=== PATIENT | female | born 1965 | race Caucasian/White ===

== ENCOUNTER 2020-03-28 02:08 | Emergency (ER) | payer SELFPAY ==
[~2020-03-28] VITALS: Ht 170.2 cm; Wt 62.3 kg
[2020-03-28 02:26] VITALS: Ht 170.2 cm; Wt 62.3 kg
[2020-03-28 02:40] LABS: BASOPHILS 0.5 % (0-2); HEMATOCRIT 37.8 % (36.0-48.0); LYMPHOCYTES 45.3 % (15-50); MCH 29.6 pg (26.0-34.0); MCHC 31.7 g/dL (31.0-37.0); MCV 93.3 fL (80.0-100.0); MEAN PLATELET VOLUME 10.4 fL (7.4-10.4); MONOCYTES 9.2 % (2-11); PLATELET COUNT 192 10x3/uL (130-400); RBC 4.05 10x6/uL (4.00-5.40); RDW 12.7 % (11.5-14.5); WBC 5.6 10x3/uL (4.8-10.8)
[2020-03-28 02:43] LABS: APTT 28.6 SECONDS (22.8-39.4); INR 0.96 (0.85-1.17); PROTIME 12.8 SECONDS (11.6-15.0)
[2020-03-28 02:45] LABS: CALC OSMOLALITY 276 mosm/kg (275-300); CALCIUM 8.4 mg/dL (8.5-10.1); CHLORIDE - SERUM 105 mmol/L (98-107); GLUCOSE 84 mg/dL (74-106); POTASSIUM - SERUM 3.4 mmol/L (3.5-5.1); SODIUM 140 mmol/L (136-145); UREA NITROGEN 11 mg/dL (7-18); eGFR NON AFRICAN AMERICAN 62 mL/min (90-120)
[2020-03-28 02:57] LABS: ALBUMIN 3.7 g/dL (3.4-5.0); ALKALINE PHOSPHATASE 40 U/L (30-120); ALT (SGPT) 29 U/L (10-68); BILIRUBIN - TOTAL 0.21 mg/dL (0.2-1.3); CKMB 1.2 U/L (0.0-3.6); CREATINE KINASE 88 UL (21-215); LIPASE 229 U/L (73-393); MAGNESIUM - SERUM 1.9 mg/dL (1.8-2.4); PROTEIN - SERUM 6.5 g/dL (6.4-8.2)
[2020-03-28 02:58] LABS: TROPONIN-I < 0.017 ng/mL (0.000-0.060)
[2020-03-28 03:03] LABS: BILIRUBIN NEGATIVE (NEGATIVE); GLUCOSE NEGATIVE (NEGATIVE); KETONE NEGATIVE (NEGATIVE); NITRITE NEGATIVE (NEGATIVE); UROBILINOGEN NORMAL (NORMAL)
[2020-03-28 03:13] LABS: UDS - AMPHET NEGATIVE QUAL (NEGATIVE); UDS - BARB NEGATIVE QUAL (NEGATIVE); UDS - BENZO NEGATIVE QUAL (NEGATIVE); UDS - COCAINE NEGATIVE QUAL (NEGATIVE); UDS - OPIATE NEGATIVE QUAL (NEGATIVE); UDS - PCP NEGATIVE QUAL (NEGATIVE); UDS - THC NEGATIVE QUAL (NEGATIVE)
[2020-03-28 05:25] LABS: CKMB 1.1 U/L (0.0-3.6)
[2020-03-28 05:28] LABS: TROPONIN-I < 0.017 ng/mL (0.000-0.060)
[2020-03-28 06:29] VITALS: BP 109/70
== END 2020-03-28 06:29 | disposition home or self-care (01) ==
LOC: D.ER 02:08
PROVIDERS: Emergency Medicine
DX: R00.1 Bradycardia, unspecified (principal); R07.9 Chest pain, unspecified

== ENCOUNTER → 2020-04-20 12:22 | Outpatient (CLI) | payer MEDICAID ==
[2020-03-28 02:26] VITALS: BMI 21.5
== END | disposition home or self-care (01) ==
LOC: D.HCCARDIO 12:22
PROVIDERS: ATTEND Internal Medicine Cardiovascular Disease
DX: R07.9 Chest pain, unspecified (principal)

== ENCOUNTER 2020-05-12 06:20 | Outpatient (CLI) | payer MEDICAID ==
[~2020-05-12] VITALS: Ht 165.1 cm; Wt 61.6 kg
--- NOTE | ~2020-05-12 | HEMODYNAMI ---
PATIENT:SUSANNAH HAGAN MEDICAL RECORD: [id number] : 69 LOCATION:[facility] ADMISSION DATE: 05/12/20 Generatedon:05/12/20209:00 Patient name: SUSANNAH HAGAN Patient #: [id number] SSN: : 1965 Date of study: 05/12/2020 Page: Of Hemodynamic Procedure Report Patient Data Patient Demographics Procedure consent was obtained First Name: SUSANNAH Gender: Female Last Name: DANYA : 1965 Patient #: [id number] Age: 55 year(s) Race: Accession #: Ethnicity: or [id number] Additional ID: [id number] Contact details Address: [place] [address] State: [place] City: [place] Zip code: [address] Past Medical History Allergies Allergen Reaction Date Comments Reported Other allergy 05/12/2020 NKDA Admission Admission Data Admission Date: 05/12/2020 Admission Time: 6:20 Arrival Date: 05/12/2020 Arrival Time: 0:00 Height (in.): 65 BSA: 1.68 (m2) Height (cm.): 165.1 BMI: 22.63 (kg/m2) Weight (lbs.): 136 Weight (kg.): 61.69 Lab Results Lab Result Date: 05/12/2020 Lab Result Time: 0:00 Biochemistry Name Units Result Min Max BUN mg/dl 14 --(--*-)-- 7 18 Creatinine mg/dl 1 --(--*-)-- 0.6 1.3 eGFR ml/min 61.95393 *-(----)-- 90 120 NONAFRICAN CBC Name Units Result Min Max Hematocrit % 40.3 -*(----)-- 42 54 Hemoglobin g/dl 13 -*(----)-- 13.5 17.5 Procedure Procedure Types Cath Procedure Diagnostic Procedure LHC LHC w/Coronaries Sedation Charges Moderate Sedation up to 15 minutes Procedure Description Procedure Date Procedure Date: 05/12/2020 Procedure Start Time: 8:44 Procedure End Time: 8:59 Procedure Staff Name Function Jay Jay Perez MD Performing Physician Monica Lovett RT Monitor Penelope Evans RN Nurse Camille Freed RT Scrub Indication Chest pain Procedure Data Cath Procedure Fluoroscopy Diagnostic fluoroscopy Total fluoroscopy Time: 0 time: 0 min min Diagnostic fluoroscopy Total fluoroscopy dose: 329 dose: 329 mGy mGy Contrast Material Contrast Material Type Amount (ml) Isovue 300 51 Entry Location Entry Primary Successful Side Size Upsize Upsize Entry Closure Anne ccessful Closure Location (Fr) 1 (Fr) 2 (Fr) Remarks Device Remarks Radial Right 6 Fr Mechanical artery Short Compression Estimated blood loss: 5 ml Diagnostic catheters Device Type Used For End Catheter Placement DIAGNOSTIC Wirt 110cm 5 Procedure Fr catheter ([id number]) DIAGNOSTIC AR MOD 5Fr Right Coronary Catheter ([id number]) Angiography Procedure Complications No complications Procedure Medications Medication Administration Route Dosage 0.9% NaCl I.V. 100 ml/hr Oxygen etCO2 Nasal cannula 2 l/min Lidocaine 2% added to field 20 Heparin Flush Bag added to field 2 bags (1000units/500ml NS) Radial Cocktail added to field 1 syringe (Verapamil 2mg/Nitro 400mcg/Heparin 1500units) Versed I.V. 2 mg Fentanyl I.V. 50 mcg Fentanyl I.V. 50 mcg Hemodynamics Rest BSA: 1.68 (m2) HGB: 13 (g/dl) O2 Consumption: Estimated: 149.45 (ml/min) O2 Cons umption indexed: Estimated:88.96 (ml/min/m) Heart Rate: 49 (bpm) Pressure Samples Time Site Value (mmHg) Purpose Heart Use Rate(bpm) 8:48 LV 97/-7,15 Snapshot 62 Gradients Valve Time Site Site Mean SEP/DFP Peak To Heart Use 1 2 (mmHg) (sec/min) Peak Rate (mmHg) (bpm) Aortic 8:48 LV AO 83 Snapshots Pre Cath Intra NCS Post Cath Vital Signs Time Heart Resp SPO2 etCO2 NIBP Rhythm Pain Sedation Rate (ipm) (%) (mmHg) (mmHg) Status Level (bpm) 8:28:27 55 16 100 40.3 110/69(84) SB 0 (11) 10(A) , No pain 8:32:39 51 23 100 41.1 99/58(82) SB 0 (11) 10(A) , No pain 8:36:46 49 14 100 41.9 97/57(81) SB 0 (11) 10(A) , No pain 8:41:45 49 17 100 43.3 Measuring SB 0 (11) 10(A) , No pain 8:41:55 52 16 100 43.3 100/57(80) SB 0 (11) 10(A) , No pain 8:46:05 49 18 100 32.1 97/51(74) SB 0 (11) 10(A) , No pain 8:50:17 54 15 100 44.8 94/44(72) SB 0 (11) 9(A) , No pain 8:54:27 57 17 98 43.3 96/46(75) SB 0 (11) 10(A) , No pain 8:58:37 51 9 98 41.8 94/49(73) SB 0 (11) 10(A) , No pain Medications Time Medication Route Dose Verified Delivered Reason Notes Ef fectiveness by by 8:27:29 0.9% NaCl I.V. 100 Jay Jay Penelope used for ml/hr Chris Evans pulper 8:27:36 Oxygen etCO2 2 l/min Jay Jay Penelope used for Nasal Chris Evans procedure cannula RN 8:27:42 Lidocaine 2% added 20ml Jay Jay Jay Jay for local to vial Chris Perez MD anesthetic field 8:27:46 Heparin Flush added 2 bags Jay Jay Jay Jay used for Bag to Chris Perez MD procedure (1000units/500ml field NS) 8:27:54 Radial Cocktail added 1 Jay Jay Jay Jay used for (Verapamil to syringe Chris Perez MD procedure 2mg/Nitro field 400mcg/Heparin 1500units) 8:41:24 Versed I.V. 2 mg Jay Jay Penelope for Chris Evans sedation RN 8:41:35 Fentanyl I.V. 50 mcg Jay Jay Penelope for Chris Evans sedation RN 8:47:08 Fentanyl I.V. 50 mcg Jay Jay Penelope for Chris Evans sedation mill attendant Log Time Note 8:16:30 Informed consent obtained and on chart 8:17:19 Indication : Chest pain 8:17:29 Procedure Status Elective Heart Cath (OP). 8:17:35 Camille Freed RT(R) sent for patient. Start room use. 8:17:38 Time tracking: Regular hours (M-F 7:00 - 5:00) 8:17:46 Plan of Care:Hemodynamics will remain stable., Cardiac rhythm will remain stable., Comfort level will be maintained., Respiratory function will remain adequate., Patient/ family verbilizes understanding of procedure., Procedure tolerated without complication., Recovers from procedure without complications.. 8:18:40 ACC Patient presents with Stable Angina CCS Anginal Class 1--Ordinary physical activity does not cause angina, angina occurs with strenuos, rapid, or prolonged activity.. 8:19:41 Stress Test: yes; abnormal inferior and lateral 8:20:03 Arrival Date: 05/12/2020 12:00:00 AM 8:20:13 Patient Height : 65 inches 8:20:42 Patient Weight : 136 lbs 8:21:07 Patient received from Pre/Post Procedure Room to CCL 1 Alert and oriented. Tansferred to table in Supine position. 8:21:09 Warm blankets applied, and julia hugger turned on for patient comfort. 8:21:10 Correct patient and procedure confirmed by team. 8:21:10 ECG and BP/O2 sat monitors applied to patient. 8:21:15 Pre-procedure instructions explained to patient. 8:21:16 Pre-op teaching completed and patient verbalized understanding. 8:21:21 H&P Date Dictated: 05/12/2020 H&P Addendum completed by physician on day of procedure. (MUST COMPLETE FOR ALL OUTPATIENTS), New H&P dictated by physician.. 8:21:24 Family in patients room. 8:21:27 Patient NPO since Midnight. 8:21:45 Patient allergic to Other allergyNKDA 8:21:48 Is the patient allergic to Iodine/contrast media? No. 8:21:52 Is patient on blood thinner?No 8:22:19 Patient not . Patient has had tubal. 8:22:21 ----Pre-sedation anethsthesia assessment.---- 8:22:25 Previous problem with sedation/anesthesia? No ? 8:22:28 Snore? Yes 8:22:31 Sleep apnea? No 8:22:34 Opens mouth fully? Yes 8:22:36 Sticks out tongue? Yes 8:22:40 Airway obstruction? No ? 8:22:43 Dentures? No ? 8:22:48 Pre procedure: right dorsailis pedis pulse 2+ Normal; easily identifiable; not easily obliterated 8:23:00 IV patent on arrival in left forearm with 0.9% NaCl at [facility]. 8:24:50 Lab Result : BUN 14 mg/dl 8:24:50 Lab Result : Creatinine 1 mg/dl 8:24:50 Lab Result : eGFR NONAFRICAN 61.83485 ml/min 8:24:50 Lab Result : Hemoglobin 13 g/dl 8:24:50 Lab Result : Hematocrit 40.3 % 8:25:00 Lab results completed and on chart. 8:25:09 Right Radial & Right Groin area was prepped with chlora-prep and draped in sterile fashion 8:25:11 Alarms reviewed by R. N. 8:25:11 Sharps counted by scrub and verified by R.N. 8:25:17 Use device set Radial Dx or PCI 8:25:19 ACIST Syringe (72444) opened to sterile field. 8:25:20 Medline Cath Pack ([id number]) opened to sterile field. 8:25:20 Bag Decanter (2002S) opened to sterile field. 8:25:21 ACIST Hand Control (36100) opened to sterile field. 8:25:22 ACIST Manifold (59428) opened to sterile field. 8:25:23 MBrace Wrist Support ([id number]) opened to sterile field. 8:25:24 NEEDLE Cook 21G 4cm Radial (L27772) opened to sterile field. 8:25:26 EMERALD Guide Wire (502-768) opened to sterile field. 8:25:27 SHEATH 6FR RAIN ([id number]) opened to sterile field. 8:27:20 Vital chart was started 8:27:29 0.9% NaCl 100 ml/hr I.V. was administered by Penelope Evans RN; used for procedure; Verbal order read back and verified. 8:27:36 Oxygen 2 l/min etCO2 Nasal cannula was administered by Penelope Evans RN; used for procedure; Verbal order read back and verified. 8:27:42 Lidocaine 2% 20ml vial added to field was administered by Jay Jay Perez MD; for local anesthetic; Verbal order read back and verified. 8:27:46 Heparin Flush Bag (1000units/500ml NS) 2 bags added to field was administered by Jay Jay Perez MD; used for procedure; Verbal order read back and verified. 8:27:54 Radial Cocktail (Verapamil 2mg/Nitro 400mcg/Heparin 1500units) 1 syringe added to field was administered by Jay Jay Perez MD; used for procedure; Verbal order read back and verified. 8:28:32 Risk of Mortality: 0.1 8:28:38 Risk of blood transfusion: 0.7 8:28:42 Risk of JACQUELINE: 1.3 8:37:15 Zero performed for pressure channel P1 8:40:52 Physician arrived 8:40:53 --------ALL STOP TIME OUT------ 8:40:54 Final Timeout: patient, procedure, and site verified with staff and physician. All members of the team are in agreement. 8:40:56 Right Radial & Right Groin site verified by team. 8:41:02 Fire Safety Assessment: A--An alcohol-based skin anteseptic being used preoperatively., C--Open oxygen or nitrous oxide is being used., D--An ESU, laser, or fiber-optic light is being used. 8:41:07 Physical assessment completed. ASA score P 2 - A patient with mild systemic disease as per Jay Jay Perez MD. 8:41:15 2) 60-89 Mildly reduced kidney function, and other findings (as for stage 1) point to kidney disease. 8:41:21 Maximum allowable contrast dose (3.7 X eGFR X 0.75)169 ml. 8:41:24 Versed 2 mg I.V. was administered by Penelope Evans RN; for sedation; Verbal order read back and verified. 8:41:27 Sedation plan: IV Moderate Sedation Medication:Versed, Fentanyl 8:41:35 Fentanyl 50 mcg I.V. was administered by Penelope Evans RN; for sedation; Verbal order read back and verified. 8:41:48 Baseline sample Acquired. 8:41:53 Rhythm: sinus rhythm 8:41:56 Full Disclosure recording started 8:42:31 Procedure started. 8:44:10 Local anesthetic to right radial artery with Lidocaine 2% by Jay Jay Perez MD.INITIAL ACCESS ONLY 8:47:05 A 6 Fr Short sheath was inserted into the Right Radial artery 8:47:08 Fentanyl 50 mcg I.V. was administered by Penelope Evans RN; for sedation; Verbal order read back and verified. 8:47:39 A DIAGNOSTIC Wirt 110cm 5 Fr catheter ([id number]) was advanced over the wire and used for Procedure. 8:47:59 Injector settings: Ml/sec: 5, Volume: 15, 8:48:02 LV gram done using [place] 8:48:43 EF : 55 % 8:48:56 LV hemodynamics recorded. 8:49:05 Injector settings: Ml/sec: 3, Volume: 6, 8:49:09 LCA angiography performed. 8:52:46 Catheter removed. 8:53:22 A DIAGNOSTIC AR MOD 5Fr Catheter ([id number]) was advanced over the wire and used for Right Coronary Angiography. 8:54:04 RCA angiography performed. 8:54:26 Injector settings: Ml/sec: 3, Volume: 6, 8:54:30 Catheter removed. 8:54:46 ZEPHYR REGULAR TR BAND (524210) opened to sterile field. 8:55:11 Sheath removed intact; hemostasis achieved with Mechanical Compression to the Right Radial artery. 8:55:27 Procedure ended.(Physican Out) 8:55:35 Contrast amount:Isovue 300 51ml. 8:55:40 Fluoroscopy time 00.00 minutes. 8:55:46 Fluoroscopy dose: 329 mGy 8:55:46 Flurop Dose total: 329 8:55:57 Dose Area Product 20772 mGy/cm. 8:56:04 Maximum allowable dose exceeded? No. 8:56:06 Sharps counted by scrub and verified by R.N. 8:56:11 Mullan band inflated with 10cc of air. 8:56:13 Insertion/operative site no bleeding no hematoma. 8:56:22 Post right radial artery:stable 8:57:30 Post-procedure physical assessment completed. ASA score P 2 - A patient with mild systemic disease as per Jay Jay Perez MD. 8:57:34 Post procedure rhythm: unchanged. 8:57:39 Estimated blood loss: 5 ml 8:57:41 Post procedure instruction explained to patient.Patient verbalizes understanding. 8:57:41 Patient needs reinforcement of post procedure teaching. 8:58:14 Procedure type changed to Cath procedure, Diagnostic procedure, LHC, C w/Coronaries, Sedation Charges, Moderate Sedation up to 15 minutes 8:58:16 Procedure and supply charges have been captured, reviewed, submitted and are correct. 8:58:56 Procedure Complication : No complications 8:58:59 Vital chart was stopped 8:59:03 [facility] Findings: mild to moderate CAD (<70%) 8:59:07 Operative report dictated upon procedure completion. 8:59:08 See physician's report for complete and final results. 8:59:10 Report given to Pre/Post Procedure Room. 8:59:13 Patient transfered to Pre/Post Procedure Room with Stretcher. 8:59:17 Procedure ended. 8:59:17 Full Disclosure recording stopped 8:59:20 End room use (Document Last) Device Usage Item Name Manufacture Quantity Catalog Hospital Part Current Minima l Lot# / Number Charge Number Stock Stock Serial# Code ACIST Acist 1 32165 153843 804779 [id number] 20 Syringe Medical (26728) Systems Inc Medline Medline 1 [id number] 688543 09486 886053 5 Cath Pack ([id number]) Bag Microtek 1 2001S 738262 25622 090455 5 Decanter Medical Inc. () ACIST Hand Acist 1 26875 187977 114574 874119 5 Control Medical (24550) Systems Inc ACIST Acist 1 78512 805234 380479 525429 5 Manifold Medical (74674) Systems Inc MBrace Advanced 1 140-0250-00 153839 59647 255546 5 Wrist Vascular Support Dynamics ([id number]) NEEDLE Cook Cook Medical 1 W61981 888974 885509 900322 5 21G 4cm Radial (Y22592) EMERALD Cardinal 1 502-455 586370 183962 082453 5 Guide Wire Health (502-455) SHEATH 6FR Cardinal 1 [id number] 484033 5915784 839912 5 [facility] (7972760) DIAGNOSTIC Terumo 1 40-7763 914603 202539 727571 5 Wirt 110cm 5 Fr catheter (230986) DIAGNOSTIC Cardinal 1 [id number] 345209 235921 916898 15 AR MOD 5Fr Health Catheter (662070U) ZEPHYR Cardinal 1 659286 070462 5719821 075077 5 REGULAR TR Health BAND (451259) Signature Audit [place] Stage Time Signature Unsigned Intra-Procedure 05/12/2020 Monica 8:59:39 AM Bony RT(R) (CV) Intra-Procedure 05/12/2020 Penelope Evans 9:00:14 AM RN Intra-Procedure 05/12/2020 Jay Jay Perez MD 9:00:42 AM [place] [id number] [place] [id number]
[2020-05-12] MEDS ORDERED: ASPIRIN325 MG PO (06:43)
[2020-05-12 06:58] VITALS: BP 113/74; Ht 165.1 cm; Wt 61.6 kg
[2020-05-12 07:12] LABS: BASOPHILS 0.6 % (0-2); EOSINOPHILS 2.1 % (0-7); HEMATOCRIT 40.3 % (36.0-48.0); IMMATURE GRANULOCYTES 0.2 % (0-5); LYMPHOCYTES 40.5 % (15-50); MCH 30.1 pg (26.0-34.0); MCHC 32.3 g/dL (31.0-37.0); MCV 93.3 fL (80.0-100.0); MEAN PLATELET VOLUME 10.4 fL (7.4-10.4); MONOCYTES 10.3 % (2-11); NEUTROPHILS 46.3 % (40-80); PLATELET COUNT 209 10x3/uL (130-400); RBC 4.32 10x6/uL (4.00-5.40); RDW 12.9 % (11.5-14.5); WBC 5.2 10x3/uL (4.8-10.8)
[2020-05-12 07:22] LABS: ANION GAP 9.5 mmol/L (8-16); CALCIUM 9.5 mg/dL (8.5-10.1); CARBON DIOXIDE 31.2 mmol/L (21.0-32.0); CHOL - HDL RATIO 2.8 ratio (2.3-4.1); LDL-HDL RATIO 1.4 ratio (1.5-3.5); POTASSIUM - SERUM 3.7 mmol/L (3.5-5.1)
--- NOTE | 2020-05-12 09:07 | NUR ---
PT ARRIVED BY STRETCHER. PLACED ON MONITORS. ASSESSMENT COMPLETED. VSS AT THIS TIME. CALL LIGHT WITHIN REACH. FAMILY AT BEDSIDE.
--- NOTE | 2020-05-12 09:22 | NUR ---
PT RESTING IN BED WITH EYES CLOSED. RESP EQUAL AND UNLABORED. EASILY AROUSED FROM SLEEP. VSS. RIGHT WRIST Z BAND IN PLACE. NO BLEEDING/HEMATOMA NOTED. CALL LIGHT WITHIN REACH. FAMILY AT BEDSIDE.
--- NOTE | 2020-05-12 09:52 | NUR ---
RIGHT WRIST Z BAND IN PLACE. NO BLEEDING/HEMATOMA NOTED. CALL LIGHT WITHIN REACH. VSS AT THIS TIME. TOLERATING SIPS OF WATER.
--- NOTE | 2020-05-12 10:15 | NUR ---
2cc OF AIR REMOVED FROM Z BAND. NO BLEEDING/HEMATOMA NOTED. FAMILY AT BEDSIDE. CALL LIGHT WITHIN REACH. VSS.
--- NOTE | 2020-05-12 10:31 | NUR ---
3cc OF AIR REMOVED FROM Z BAND. NO BLEEDING/HEMATOMA NOTED. CALL LIGHT WITHIN REACH. VSS AT THIS TIME. FAMILY AT BEDSIDE. DENIES NAUSEA. TOLERATING SIPS OF WATER. DOES NOT WANT ANY FOOD AT THIS TIME.
--- NOTE | 2020-05-12 10:44 | NUR ---
3cc OF AIR REMOVED FROM Z BAND. NO BLEEDING/HEMATOMA NOTED. CALL LIGHT WITHIN REACH. FAMILY AT BEDSIDE. VSS. NO NEEDS AT THIS TIME.
--- NOTE | 2020-05-12 11:00 | NUR ---
RIGHT WRIST Z BAND REMOVED AND DRESSING APPLIED. NO BLEEDING/HEMATOMA NOTED. RIGHT WRIST BRACE IN PLACE. PIV D/C'D WITH CATH TIP INTACT. TOLERATED WELL. PT INSTRUCTED TO GET UP AND DRESSED AT THIS TIME. FAMILY AT BEDSIDE TO ASSIST.
--- NOTE | 2020-05-12 11:05 | NUR ---
DISCUSSED DISCHARGE INSTRUCTIONS WITH PT AND PT'S FAMILY. THEY VOICED UNDERSTANDING.
--- NOTE | 2020-05-12 11:10 | NUR ---
PT AMBULATED TO RESTROOM AND VOIDED WITHOUT DIFFICULTY. STEADY GAIT NOTED.
--- NOTE | 2020-05-12 11:20 | NUR ---
RIGHT WRIST DRESSING C/D/I. NO S/S OF HEMATOMA NOTED. PT TAKEN DOWN TO VEHICLE BY WHEELCHAIR. NO S/S OF DISTRESS NOTED. ALL BELONGINGS AND PAPERWORK IN HAND.
== END 2020-05-12 11:20 | disposition home or self-care (01) ==
LOC: D.CATH 06:20
PROVIDERS: ATTEND Internal Medicine Cardiovascular Disease
DX: I20.9 Angina pectoris, unspecified (principal); R94.39 Abnormal result of other cardiovascular function study; R07.9 Chest pain, unspecified; R06.00 Dyspnea, unspecified